=== PATIENT | male | born 1980 | race Caucasian/White ===

== ENCOUNTER 2018-12-08 10:47 | Emergency (ER) | payer OTHER ==
[2018-12-08 11:04] VITALS: BP 122/74; PULSE 68; TEMP 98.1; BMI 31.6
[2018-12-08] MEDS ORDERED: IBUPROFEN 400 MG TABLET (FP) PO ONE ×2 (11:42→11:45)
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
== END 2018-12-08 14:14 | disposition home or self-care (01) ==
LOC: JERFT 10:47
DX: M54.5 Low back pain (principal); M54.6 Pain in thoracic spine; V47.5XXA Car driver injured in collision with fixed or stationary object in traffic accident, initial encounter; Y92.412 Parkway as the place of occurrence of the external cause; Y93.89 Activity, other specified; Y99.8 Other external cause status
CPT/HCPCS: 72050-TC-FY; 72070-TC-FY; 99281-25

== ENCOUNTER 2020-10-16 13:29 | Inpatient (IN) | payer OTHER ==
[2020-10-16] MEDS ORDERED: SODIUM CHLORIDE 0.9% 500 ML INFUS.BAG IV ONE (14:34)
[2020-10-16 15:14] LABS: BASO % 0.2 % (0-2.0); EOS % 0.2 % (0-4.5); HEMATOCRIT 45.2 % (35.4-49); HEMOGLOBIN 15.3 GM/dL (11.7-16.9); MCHC 33.8 g/dl (32.0-35.9); MEAN CELL VOLUME 91.7 fl (80-96); MEAN PLT VOLUME 7.6 fl (7.5-11.1); MONO % 3.4 % (3.8-10.2); NEUT % 86.2 % (42.8-82.8); PLATELET COUNT 314 K/MM3 (134-434); RBC 4.93 M/mm3 (4.00-5.60); RDW 12.9 % (11.9-15.9); WHITE BLOOD COUNT 15.7 K/mm3 (4.0-10.0)
[2020-10-16 15:22] LABS: INR 1.15 (0.83-1.09); PROTHROMBIN TIME (PATIENT) 14.1 SEC (9.7-13.0)
[2020-10-16] MEDS ORDERED: morphine CARPU-JECT 2 MG/1 ML DISP.SYRIN IVPUSH ONE (15:26)
[2020-10-16 15:33] LABS: POTASSIUM 4.1 mmol/L (3.5-5.1)
[2020-10-16 15:35] LABS: CALCIUM 9.1 mg/dL (8.5-10.1)
[2020-10-16 15:37] LABS: ALBUMIN 4.1 g/dl (3.4-5.0); BLOOD UREA NITROGEN 9.8 mg/dL (7-18)
[2020-10-16 15:39] LABS: CREATININE 0.9 mg/dL (0.55-1.3)
[2020-10-16 15:41] LABS: BILIRUBIN,TOTAL 0.7 mg/dL (0.2-1); TOT PROT 7.8 g/dl (6.4-8.2)
[2020-10-16] MEDS ORDERED: MORPHINE SULFATE 2 MG/ML VIAL ONE (15:46)
[2020-10-16] MEDS ORDERED: CEFTRIAXONE 2,000 MG in DEXTROSE 5%-WATER - 50 ML IVPB ONE (19:02)
[2020-10-16] MEDS ORDERED: ACETAMINOPHEN 1000 MG/100 ML VIAL (NON FORMULARY) IVPB ONE (19:02)
[2020-10-16] MEDS ORDERED: CEFTRIAXONE 1 GM/50 ML BAG ONE (19:26)
[2020-10-16] MEDS ORDERED: ACETAMINOPHEN INJECTION 100 ML IVPB ONE (19:26)
[2020-10-16] MEDS: SODIUM CHLORIDE 1,000 ML IV SCH (19:38)
[2020-10-17] MEDS ORDERED: ACETAMINOPHEN 1000 MG/100 ML VIAL (NON FORMULARY) IVPB PRN (01:00)
[2020-10-17 04:27] VITALS: BP 133/83; PULSE 69; TEMP 97.8; BMI 33.3
[2020-10-17] MEDS: SODIUM CHLORIDE 1,000 ML IV SCH (08:59)
[2020-10-17] MEDS ORDERED: ENOXAPARIN NA (PORCINE) 40 MG/0.4 ML DISP.SYRIN SQ SCH (10:00)
[2020-10-17] MEDS ORDERED: CEFTRIAXONE 2 GM in DEXTROSE 5%-WATER 2 GM/100 ML BAG IVPB SCH (10:00)
[2020-10-17 10:24] LABS: BASO % 0.3 % (0-2.0); EOS % 1.4 % (0-4.5); HEMATOCRIT 43.2 % (35.4-49); HEMOGLOBIN 14.8 GM/dL (11.7-16.9); LYMPH % 28.3 % (8-40); MCH 31.5 pg (25.7-33.7); MCHC 34.3 g/dl (32.0-35.9); MEAN PLT VOLUME 7.4 fl (7.5-11.1); MONO % 5.9 % (3.8-10.2); NEUT % 64.1 % (42.8-82.8); PLATELET COUNT 287 K/MM3 (134-434); RDW 12.6 % (11.9-15.9); WHITE BLOOD COUNT 7.5 K/mm3 (4.0-10.0)
[2020-10-17] MEDS ORDERED: DEXTROSE 5%-WATER 100 ML IVPB ONE (10:31)
[2020-10-17 10:49] LABS: POTASSIUM 3.7 mmol/L (3.5-5.1)
[2020-10-17 11:08] LABS: ALBUMIN 3.8 g/dl (3.4-5.0); CREATININE 0.8 mg/dL (0.55-1.3)
[2020-10-17 11:09] LABS: BILIRUBIN,TOTAL 0.8 mg/dL (0.2-1); CALCIUM 8.8 mg/dL (8.5-10.1)
[2020-10-17 11:11] LABS: BLOOD UREA NITROGEN 7.5 mg/dL (7-18); TOT PROT 6.8 g/dl (6.4-8.2)
== END 2020-10-17 13:57 | disposition home or self-care (01) | DRG 861 ==
LOC: JER 13:29 → JERBED 19:11 → J8W 10-17 04:00
PROVIDERS: ADMIT Internal Medicine; ATTEND Internal Medicine
DX: G89.18 Other acute postprocedural pain (principal); R10.84 Generalized abdominal pain; E66.9 Obesity, unspecified; Z68.33 Body mass index [BMI] 33.0-33.9, adult; D72.829 Elevated white blood cell count, unspecified
CPT/HCPCS: 36415; 74177-TC; 80053; 82150; 83605; 83690; 85025; 85610; 86850; 86900; 86901; 87040; 87086; 99285-25; C9803; J0131; U0003

== ENCOUNTER 2021-03-16 21:21 | Emergency (ER) | payer OTHER ==
[2021-03-16 21:35] VITALS: TEMP 98.1; BMI 32.6
[2021-03-16] MEDS ORDERED: METHOCARBAMOL 500 MG TABLET PO ONE (22:29)
[2021-03-16] MEDS ORDERED: ASPIRIN 81 MG CHEWABLE TABLETS PO ONE (22:29)
[2021-03-16] MEDS ORDERED: METHOCARBAMOL 500 MG TABLET ONE (22:38)
[2021-03-16] MEDS ORDERED: ASPIRIN 81 MG CHEWABLE TABLETS ONE (22:38)
[2021-03-16 23:03] LABS: BASO % 0.8 % (0-2.0); EOS % 4.4 % (0-4.5); HEMATOCRIT 46.6 % (35.4-49); HEMOGLOBIN 16.3 GM/dL (11.7-16.9); LYMPH % 37.7 % (8-40); MCH 31.7 pg (25.7-33.7); MCHC 34.9 g/dl (32.0-35.9); MEAN CELL VOLUME 90.8 fl (80-96); MEAN PLT VOLUME 6.8 fl (7.5-11.1); MONO % 7.6 % (3.8-10.2); NEUT % 49.5 % (42.8-82.8); PLATELET COUNT 296 10^3/uL (134-434); RBC 5.14 M/mm3 (4.00-5.60); RDW 12.8 % (11.9-15.9); WHITE BLOOD COUNT 8.6 K/mm3 (4.0-10.0)
[2021-03-16 23:20] LABS: INR 1.08 (0.83-1.09)
[2021-03-16 23:22] LABS: ACTIVATED PTT 32.4 SECONDS (25.2-36.5)
[2021-03-16 23:23] LABS: CHLORIDE 102 mmol/L (98-107); SODIUM 139 mmol/L (136-145)
[2021-03-16 23:26] LABS: ANION GAP 6 MMOL/L (8-16); CALCIUM 9.1 mg/dL (8.5-10.1); CO2 30 mmol/L (21-32); GLUCOSE,RANDOM 100 mg/dL (74-106)
[2021-03-16 23:29] LABS: CREATININE 0.9 mg/dL (0.55-1.3); SGOT/AST 33 U/L (15-37); SGPT/ALT 47 U/L (13-61)
[2021-03-16 23:31] LABS: BILIRUBIN,TOTAL 0.4 mg/dL (0.2-1); TOT PROT 7.8 g/dl (6.4-8.2)
[2021-03-16 23:32] LABS: ALK PHOS 50 U/L (45-117)
[2021-03-17 03:15] VITALS: BP 130/93; PULSE 71
== END 2021-03-17 03:19 | disposition home or self-care (01) ==
LOC: JER 21:21
DX: R07.9 Chest pain, unspecified (principal)
CPT/HCPCS: 36415; 71045-TC-FY; 80053; 82550; 82553; 84484; 85025; 85610; 85730; 93005; 93010; 99285-25

== ENCOUNTER 2021-05-12 22:42 | Inpatient (IN) | payer OTHER ==
[2021-05-12] MEDS ORDERED: LACTATED RINGERS SOLUTION 1000 ML INFUS.BAG IV ONE (23:20)
[2021-05-12] MEDS ORDERED: ACETAMINOPHEN 1000 MG/100 ML VIAL (NON FORMULARY) IVPB ONE (23:20)
[2021-05-12] MEDS ORDERED: ACETAMINOPHEN INJECTION 100 ML IVPB ONE (23:44)
[2021-05-13 00:25] LABS: BASO % 0.5 % (0-2.0); EOS % 0.9 % (0-4.5); HEMATOCRIT 44.8 % (35.4-49); HEMOGLOBIN 15.4 GM/dL (11.7-16.9); MCH 30.9 pg (25.7-33.7); MCHC 34.3 g/dl (32.0-35.9); MEAN CELL VOLUME 90.2 fl (80-96); MEAN PLT VOLUME 7.2 fl (7.5-11.1); MONO % 5.7 % (3.8-10.2); NEUT % 79.9 % (42.8-82.8); PLATELET COUNT 286 10^3/uL (134-434); RBC 4.97 M/mm3 (4.00-5.60); RDW 12.5 % (11.9-15.9); WHITE BLOOD COUNT 15.8 K/mm3 (4.0-10.0)
[2021-05-13 00:44] LABS: CALCIUM 9.2 mg/dL (8.5-10.1)
[2021-05-13 00:45] LABS: ALBUMIN 4.2 g/dl (3.4-5.0); MAGNESIUM 1.9 mg/dL (1.8-2.4); URINE APPEARANCE CLEAR; URINE BILIRUBIN NEGATIVE (NEGATIVE); URINE COLOR YELLOW; URINE GLUCOSE (UA) NEGATIVE (NEGATIVE); URINE KETONE NEGATIVE (NEGATIVE); URINE LEUK ESTERASE NEGATIVE (NEGATIVE); URINE NITRITE NEGATIVE (NEGATIVE); URINE PROTEIN NEGATIVE (NEGATIVE); URINE UROBILINOGEN 0.2 mg/dL (0.2-1.0)
[2021-05-13 00:46] LABS: BLOOD UREA NITROGEN 12.8 mg/dL (7-18)
[2021-05-13 00:49] LABS: BILIRUBIN,TOTAL 0.9 mg/dL (0.2-1)
[2021-05-13 00:50] LABS: TOT PROT 7.8 g/dl (6.4-8.2)
[2021-05-13] MEDS ORDERED: CEFTRIAXONE 1,000 MG in DEXTROSE 5%-WATER - 50 ML IVPB ONE (02:28)
[2021-05-13] MEDS ORDERED: HYDROmorphone HCL CARPU-JECT 2 MG/1 ML DISP.SYRIN IVPB ONE (02:48)
[2021-05-13] MEDS ORDERED: HYDROmorphone HCl 2 MG/ML VIAL ONE (03:06)
[2021-05-13] MEDS ORDERED: CEFTRIAXONE 1 GM/50 ML BAG ONE (03:06)
[2021-05-13] MEDS ORDERED: MORPHINE SULFATE 2 MG/ML VIAL IVPUSH PRN (03:16)
[2021-05-13] MEDS ORDERED: DEXTROSE 5%-NORMAL SALINE 1,000 ML IV SCH (03:30)
[2021-05-13] MEDS: DEXTROSE 5%-LACTATED RINGERS 1,000 ML IV SCH (04:13)
[2021-05-13] MEDS ORDERED: ROSUVASTATIN CA 10 MG TABLET (FP) PO ONE (04:16)
[2021-05-13] MEDS ORDERED: hydrALAZINE HCL 20 MG/ML VIAL IVPUSH PRN (05:07)
[2021-05-13 05:55] LABS: INR 1.22 (0.83-1.09); PROTHROMBIN TIME (PATIENT) 14.7 SEC (9.7-13.0)
[2021-05-13 05:58] LABS: ACTIVATED PTT 29.1 SECONDS (25.2-36.5)
[2021-05-13 06:51] LABS: HEMATOCRIT 43.4 % (35.4-49); HEMOGLOBIN 15.1 GM/dL (11.7-16.9); MCH 31.8 pg (25.7-33.7); MCHC 34.8 g/dl (32.0-35.9); MEAN CELL VOLUME 91.5 fl (80-96); MEAN PLT VOLUME 7.2 fl (7.5-11.1); PLATELET COUNT 284 10^3/uL (134-434); RBC 4.74 M/mm3 (4.00-5.60); RDW 12.2 % (11.9-15.9); WHITE BLOOD COUNT 14.9 K/mm3 (4.0-10.0)
[2021-05-13 07:05] LABS: CALCIUM 8.5 mg/dL (8.5-10.1)
[2021-05-13 07:06] LABS: BLOOD UREA NITROGEN 9.5 mg/dL (7-18)
[2021-05-13 07:09] LABS: CREATININE 0.9 mg/dL (0.55-1.3)
[2021-05-13] MEDS ORDERED: MORPHINE SULFATE 2 MG/ML VIAL ONE ×2 (11:40→12:39)
[2021-05-13] MEDS ORDERED: ACETAMINOPHEN 1000 MG/100 ML VIAL (NON FORMULARY) IVPB ONE (14:30)
[2021-05-13] MEDS ORDERED: ACETAMINOPHEN INJECTION 100 ML IVPB ONE (14:31)
[2021-05-13] MEDS ORDERED: KETOROLAC TROMETHAMINE 30 MG/1 ML VIAL IVPUSH PRN (14:50)
[2021-05-13] MEDS ORDERED: KETOROLAC TROMETHAMINE 30 MG/1 ML VIAL ONE (14:54)
[2021-05-13] MEDS ORDERED: ONDANSETRON 4 MG/2 ML VIAL IVPUSH PRN (15:50)
[2021-05-13] MEDS ORDERED: PROMETHAZINE HCL 25 MG/1 ML VIAL IVPUSH PRN (15:50)
[2021-05-13] MEDS: LACTATED RINGERS SOLUTION 1,000 ML IV SCH (20:31)
[2021-05-14] MEDS: LACTATED RINGERS SOLUTION 1,000 ML IV SCH (03:47)
[2021-05-14 04:31] VITALS: BMI 32.2
[2021-05-14] MEDS: DEXTROSE 5%-LACTATED RINGERS 1,000 ML IV SCH ×3 (07:44→23:25)
[2021-05-14] MEDS ORDERED: ONDANSETRON 4 MG/2 ML VIAL IVPUSH PRN ×2 (09:02→10:22)
[2021-05-14] MEDS ORDERED: PROPOFOL 20 ML ONE (09:14)
[2021-05-14] MEDS ORDERED: SUCCINYLCHOLINE CHLORIDE 200 MG/10 ML SYRINGE ONE (09:15)
[2021-05-14] MEDS ORDERED: MIDAZOLAM HCL 2 MG/2 ML SINGLE DOSE VIAL ONE (09:15)
[2021-05-14] MEDS ORDERED: AMPICILLIN SODIUM 2 GM VIAL ONE (09:52)
[2021-05-14] MEDS ORDERED: ONDANSETRON 4 MG/2 ML VIAL ONE (10:12)
[2021-05-14] MEDS ORDERED: DEXAMETHASONE SOD PHOSPHATE 4 MG/1 ML VIAL ONE (10:12)
[2021-05-14] MEDS ORDERED: AMPICILLIN SODIUM 1 GM VIAL IVPB ONE (10:15)
[2021-05-14] MEDS ORDERED: MORPHINE SULFATE 2 MG/ML VIAL IVPUSH PRN (10:22)
[2021-05-14] MEDS ORDERED: hydrALAZINE HCL 20 MG/ML VIAL IVPUSH PRN (10:22)
[2021-05-14] MEDS ORDERED: BUPIVACAINE HCL/PF 0.5% (5MG/ML) 10 ML VIAL ONE (10:27)
[2021-05-14] MEDS ORDERED: NEOSTIGMINE METHYLSULFATE 0.5 MG/1 ML - 10 ML MDV ONE (10:46)
[2021-05-14] MEDS ORDERED: GLYCOPYRROLATE 0.2 MG/1 ML VIAL ONE (10:46)
[2021-05-14] MEDS: KETOROLAC TROMETHAMINE 30 MG/1 ML VIAL IVPUSH PRN (15:14)
[2021-05-14] MEDS: ACETAMINOPHEN 1000 MG/100 ML VIAL (NON FORMULARY) IVPB PRN (20:54)
[2021-05-15] MEDS: ACETAMINOPHEN 1000 MG/100 ML VIAL (NON FORMULARY) IVPB PRN ×2 (08:47→20:01)
[2021-05-15] MEDS: HEPARIN NA (PORCINE) 5,000 UNITS/ML 1ML VIAL SQ SCH ×2 (12:53→21:07)
[2021-05-15] MEDS: DEXTROSE 5%-LACTATED RINGERS 1,000 ML IV SCH (12:53)
[2021-05-15] MEDS: KETOROLAC TROMETHAMINE 30 MG/1 ML VIAL IVPUSH PRN (13:40)
[2021-05-16] MEDS: DEXTROSE 5%-LACTATED RINGERS 1,000 ML IV SCH ×3 (02:45→17:30)
[2021-05-16 08:49] LABS: BASO % 0.7 % (0-2.0); EOS % 3.3 % (0-4.5); LYMPH % 33.7 % (8-40); MCH 31.9 pg (25.7-33.7); MCHC 34.9 g/dl (32.0-35.9); MEAN CELL VOLUME 91.4 fl (80-96); MEAN PLT VOLUME 7.8 fl (7.5-11.1); NEUT % 56.3 % (42.8-82.8); PLATELET COUNT 304 10^3/uL (134-434); RBC 4.37 M/mm3 (4.00-5.60); WHITE BLOOD COUNT 8.9 K/mm3 (4.0-10.0)
[2021-05-16] MEDS: HEPARIN NA (PORCINE) 5,000 UNITS/ML 1ML VIAL SQ SCH ×2 (09:32→20:59)
[2021-05-16 11:29] LABS: CALCIUM 8.5 mg/dL (8.5-10.1)
[2021-05-16 11:30] LABS: BLOOD UREA NITROGEN 12.7 mg/dL (7-18)
[2021-05-16 11:33] LABS: CREATININE 0.9 mg/dL (0.55-1.3)
[2021-05-16] MEDS: KETOROLAC TROMETHAMINE 30 MG/1 ML VIAL IVPUSH PRN ×2 (13:41→21:55)
[2021-05-17] MEDS: DEXTROSE 5%-LACTATED RINGERS 1,000 ML IV SCH (05:14)
[2021-05-17] MEDS: KETOROLAC TROMETHAMINE 30 MG/1 ML VIAL IVPUSH PRN (10:13)
[2021-05-17] MEDS: HEPARIN NA (PORCINE) 5,000 UNITS/ML 1ML VIAL SQ SCH (10:14)
[2021-05-17] MEDS ORDERED: SIMETHICONE 80 MG TAB.CHEW (FP) PO PRN (12:34)
[2021-05-17] MEDS ORDERED: PANTOPRAZOLE 40 MG TABLET PO SCH (12:45)
[2021-05-17 15:14] VITALS: BP 114/73; PULSE 79; TEMP 98.9
[2021-05-17] MEDS ORDERED: oxyCODONE HCL 5 MG TABLET PO PRN ×2 (16:34)
== END 2021-05-17 19:30 | disposition home or self-care (01) | DRG 225 ==
LOC: JER 22:42 → JERBED 05-13 02:00 → J8W 05-13 18:55
PROVIDERS: ADMIT Internal Medicine; ATTEND Internal Medicine
PROC: 0DTJ4ZZ Resection of Appendix, Percutaneous Endoscopic Approach (ICD-10-PCS; principal; 2021-05-14 10:23)
DX: K35.890 Other acute appendicitis without perforation or gangrene (principal); E78.00 Pure hypercholesterolemia, unspecified; D72.829 Elevated white blood cell count, unspecified; M54.9 Dorsalgia, unspecified
CPT/HCPCS: 36415; 71045-TC-FY; 74018-TC-FY; 74177-TC; 80048; 80053; 81003; 83690; 83735; 85025; 85027; 85610; 85730; 86850; 86900; 86901; 88304-TC; 93005; 93010; 94010; 94760; 97116-GP; 97161-GP; 99285-25; C9803; J0131; J1644; U0003; U0005